=== PATIENT | male | born 1960 | race Caucasian/White ===

== ENCOUNTER 2019-10-21 09:14 | Emergency (ER) | payer BC, SELFPAY ==
[2019-10-21 09:16] VITALS: BP 161/97; PULSE 92; RESP 17; TEMP 36.7; O2SAT 97; BMI 31.8
--- NOTE | 2019-10-21 09:31 | CT_ITS ---
STUDY: CT ABDOMEN AND PELVIS WITHOUT CONTRAST REASON FOR EXAM: Male, 59 years old. INCREASING LBP X 1.5 WEEKS. Hx of diabetes and HTN-rx controlled. RADIATION DOSAGE (If Supplied By Facility): CTDIvol = ( 14.95 ) mGy, DLP = ( 829.22 ) mGycm TECHNIQUE: Transaxial images were obtained from the dome of the diaphragm to the symphysis pubis without oral contrast, and without intravenous contrast. Sagittal and coronal images were reconstructed. Individualized dose optimization techniques were used for this CT. COMPARISON: None. FINDINGS: The visualized lung bases are unremarkable. The visualized portions of the heart are within normal limits. There is decreased attenuation of the liver consistent with steatosis. Mild hepatomegaly. Normal gallbladder and extrahepatic biliary system. Normal spleen. Normal pancreas. Normal bilateral adrenal glands. Normal right kidney. Normal left kidney. Normal visualized stomach. Normal small intestine. Normal colon. The appendix is visualized and appears normal. There is scattered atherosclerotic calcification of the abdominal aorta, without a demonstrated aneurysm. Normal inferior vena cava. Normal retroperitoneum. Normal urinary bladder. There are prostatic calcifications. Small bilateral inguinal hernias containing fat. There are degenerative changes of the visualized lumbar spine. CT/Abdomen/Pelvis without Cont IMPRESSION: Mild hepatomegaly and diffuse fatty infiltration of the liver Electronically Signed: Octavio Caro, at 10:26 EST , Service support ,
--- NOTE | 2019-10-21 09:36 | ED.VISSUMM ---
- ER Visit Summary Date of Service: 10/21/19 Chief Complaint: Back pain History of Present Illness: The patient is a [address] Jasso. He reports that 10 days ago he lifted a tote and twisted. He had the onset of low back pain and left groin pain. He reports that over the next few days the pain seemed to resolve. 5 days ago he was doing laundry and states the pain began again. He describes as a sharp pain that is 10 out of 10 at worst 9 out of 10 currently. Is worsened with sitting or bending. Is relieved by nothing. States that it radiates to the left side of his groin. And feels as though it radiates into his left testicle. He denies any numbness or weakness. No problems with his bowels or her bladder. No groin numbness. Physical Examination: Vitals: Stable. Afebrile. General: Well-nourished and well-developed. Head: Normocephalic atraumatic. Neck: Supple, no lymphadenopathy. No JVD. Nontender. Cardiovascular: Regular rate and rhythm. No murmurs. Respiratory: No respiratory distress. Clear to auscultation bilaterally. Abdominal: Soft, mild tenderness palpation left lower quadrant, nondistended, normal bowel sounds. No guarding, rebound, or peritoneal signs. : Normal uncircumcised male. No testicular or epididymal tenderness to palpation. No hernias. He was examined while standing. Back: No vertebral tenderness. No paraspinous muscular tenderness. He has pain just inferior to his left CVA. Negative straight leg raise bilaterally. 5-5 dorsiflexion, plantarflexion, extensor hallucis longus bilaterally. Normal sensation light touch. Normal gait. Extremities: Nontender, no edema. Skin: Normal color, no rash. Neurologic: Alert and oriented ?3. Cranial nerves II through XII are intact. Normal strength and sensation. Psych: Normal affect. Test Results: CBC is normal. Chem-7 shows a glucose of 210. UA is negative. Clinical Impression(s) from Imaging Studies Abdomen/Pelvis CT 10/21/19 09:31 IMPRESSION: Mild hepatomegaly and diffuse fatty infiltration of the liver Electronically Signed: Octavio Caro, at 10:26 EST , Service support , Emergency Department Course and Treatment: Patient had an IV placed. He was given Toradol and morphine IV. He is resting more comfortably. Treatment Plan: I discussed symptomatic treatment with the patient. Warm compresses, TENS unit, he will be given a prescription for Percocet, naproxen, and Zofran. Instructed to follow-up his primary care physician in 3 to 5 days if not improving. Return to the emergency department for any worsening symptoms. Disposition: To home in improved and stable condition. Impression: 1. Back pain, acute. This note was generated with [employer] dictation software. It may contain incorrect words, spelling, and punctuation that were not noted in review of the chart prior to signing ED Disposition - Plan for ED Patient: Instructions: BACK AND NECK PAIN, General Prescriptions: Naproxen [Naprosyn] 500 mg PO BID #14 tablet Oxycodone HCl/Acetaminophen [Percocet 5/325] 1 tablet PO Q6H PRN PRN 3 Days #12 tablet PRN Reason: Pain Ondansetron [Zofran Odt] 4 mg PO Q8H PRN PRN #10 tablet PRN Reason: Nausea Referrals: Huy Jasso MD [Primary Care Provider] - 3-5 Days if not improving
[2019-10-21 09:55] LABS: Bacteria 0 SEEN /hpf (None Seen); Mucous, Urine 0 SEEN /hpf (<or=2+)
[2019-10-21 09:59] LABS: Absolute Lymphocyte Count 1.37 X10^3/uL (0.83-4.51); Basophil# 0.05 X10^3/uL; Color, Urine Yellow (Yellow); Eosinophil# 0.23 X10^3/uL; Eosinophils% 4.4 % (0-5); Glucose, Dipstick Normal (Normal); Hematocrit 49.6 % (40-54); Hemoglobin 16.5 g/dL (13.0-16.5); Ketone-Dipstick 5 mg/dl (Negative); Leukocyte Esterase-Dipstick Negative /ul (Negative); Lymphocyte # 1.37 X10^3/ul (4.0); Lymphocyte % 26.4 % (19-41); Mean Corp Hgb Conc 33.3 g/dL (32-36); Mean Corpuscular Hgb 28.4 pg (27.0-32.0); Mean Corpuscular Volume 85.5 fL (80-94); Mean Platelet Vol. 9.6 fl (6.2-12.0); Monocyte# 0.48 X10^3/uL; Monocyte% 9.3 % (0-10); NRBC Flagged by Analyzer 0 % (0-5); Neutrophil # 3.02 X10^3/uL (2.7-7.7); Neutrophil % 58.3 % (47-70); Nitrite-Dipstick Negative (Negative); Occult Blood-Urine 10 /ul (Negative); Platelet Count 220 K/mm3 (150-450); Protein-Dipstick 30 mg/dl (Negative); RBC Distribution Width CV 12.3 % (11.6-14.6); Urine Bilirubin Dipstick Negative (Negative); Urine Clarity Sl. Cloudy (Clear); Urine Urobilinogen Normal (Normal); White Blood Count 5.2 K/mm3 (4.4-11.0)
[2019-10-21] MEDS: 0.9% Normal Saline 1,000 ML 250 ML IV (09:59)
[2019-10-21] MEDS: Ketorolac 30 MG/ML Syringe IV (09:59)
[2019-10-21 10:10] LABS: Red Blood Cells-Urine 0-5 SEEN /hpf (0-5); Squamous Epithelial Cells - UA 0-5 SEEN /hpf (0-5); White Blood Cells 0-5 SEEN /hpf (0-5)
[2019-10-21 10:19] LABS: Anion Gap 3 (5-15); BUN 15 mg/dL (7-18); BUN/Creat Ratio 15.6 RATIO (10-20); Calcium,Total 9.3 mg/dL (8.5-10.1); Chloride 102 mmol/L (98-107); Creatinine, Serum 0.96 mg/dL (0.70-1.30); EST Glomerular Filtration Rate 86 mL/min (>60); Est Glom Filt Rate - Afr Amer 104 mL/min (>60); Estimated Creatinine Clearance 87.66 ml/min; Glucose 210 mg/dL (74-106); Potassium 4.1 mmol/L (3.5-5.1); Sodium Level 136 mmol/L (136-145)
[2019-10-21] MEDS: Morphine 4 MG/ML Syringe IV (11:02)
[2019-10-21 11:25] VITALS: BP 151/83; PULSE 81; RESP 14; O2SAT 97
== END 2019-10-21 11:24 | disposition home or self-care (01) ==
LOC: ED 09:40
PROVIDERS: Emergency Provider Emergency Medicine; PCP Family Medicine; Referring Provider Family Medicine
DX: M54.5 Low back pain (principal); R10.32 Left lower quadrant pain; E11.9 Type 2 diabetes mellitus without complications; I10 Essential (primary) hypertension; Z79.84 Long term (current) use of oral hypoglycemic drugs; Z79.1 Long term (current) use of non-steroidal anti-inflammatories (NSAID); Z79.899 Other long term (current) drug therapy
CPT/HCPCS: 74176; 80048; 81001; 85025; 96361; 96374; 96375; 99283; J7030; A4216